=== PATIENT | female | born 1960 | race African-American/Black ===

== ENCOUNTER 2017-04-21 00:01 | Emergency (ER) | payer SELFPAY ==
[~2017-04-21] VITALS: Ht 157.5 cm; Wt 113.6 kg
[2017-04-21] MEDS ORDERED: PERCT10 PO (00:20)
[2017-04-21] MEDS ORDERED: BUPR150SR PO (00:20)
[2017-04-21] MEDS ORDERED: PROZ10 PO (00:20)
[2017-04-21] MEDS ORDERED: FURO40 PO (00:20)
[2017-04-21] MEDS ORDERED: METF500T4 PO (00:20)
[2017-04-21] MEDS ORDERED: QUET100T PO (00:20)
[2017-04-21] MEDS ORDERED: LAMO100 PO (00:20)
[2017-04-21] MEDS ORDERED: MECL12.585 PO (00:20)
[2017-04-21] MEDS ORDERED: PROP10TA73 PO (00:20)
[2017-04-21] MEDS ORDERED: FLUT1BLS IH (00:20)
[2017-04-21] MEDS ORDERED: TRAZ-147 PO (00:20)
[2017-04-21] MEDS ORDERED: METO-558 PO (00:20)
[2017-04-21] MEDS ORDERED: 0.9% SODIUM CHLORIDE 5 ML NEB SOLUTION NEB ONE (00:24)
[2017-04-21] MEDS ORDERED: ALBUTEROL SULFATE 5 MG/ML 20 ML NEB SOLN [BULK] NEB ONE (00:30)
[2017-04-21 01:14] LABS: BASOPHILS % (AUTO) 0.2 % (0.0-2.0); HEMATOCRIT 36.7 % (36-46); HEMOGLOBIN 12.4 g/dL (12.0-16.0); LYMPHOCYTES # (AUTO) 2.4 K/uL (1.0-4.8); LYMPHOCYTES % (AUTO) 46.3 % (22.0-44.0); MEAN CORPUSCULAR HEMOGLOBIN 29.5 pg (26.0-34.0); MEAN CORPUSCULAR HGB CONC 33.7 G/dL (31.0-37.0); MEAN CORPUSCULAR VOLUME 87 fL (80-100); MONOCYTES # (AUTO) 0.6 K/uL (0.1-1.0); MONOCYTES % (AUTO) 11.9 % (2.0-9.0); NEUTROPHILS # (AUTO) 2.1 K/uL (1.8-7.7); NEUTROPHILS % (AUTO) 39.6 % (40.0-70.0); PLATELET COUNT (AUTO) 301 K/uL (150-450); RED CELL DISTRIBUTION WIDTH 13.8 % (11.5-14.5)
[2017-04-21 01:29] LABS: ANION GAP 9 mmol/L (8-16); CALCIUM, TOTAL 8.3 mg/dL (8.8-10.5); CARBON DIOXIDE 26 mmol/L (22-29); CHLORIDE 106 mmol/L (98-107); CREATININE 1.01 mg/dL (0.60-1.30); GLOMERULAR FILTR. RATE CALC > 60 mL/min (>60); GLUCOSE,RANDOM 123 mg/dL (70-110); POTASSIUM 3.6 mmol/L (3.5-5.1); SODIUM SERUM 141 mmol/L (136-145); UREA NITROGEN, BLOOD 19 mg/dL (7-18)
[2017-04-21 01:34] LABS: ALANINE AMINOTRANSFERASE 36 U/L (12-78); ALBUMIN 3.4 g/dL (3.4-5.0); ALKALINE PHOSPHATASE 76 U/L (46-116); ASPARTATE AMINOTRANSFERASE 21 U/L (15-37); BILIRUBIN,TOTAL 0.2 mg/dL (0.1-1.0)
[2017-04-21 01:52] LABS: B-TYPE NATRIURETIC PEPTIDE 11 pg/mL (0-100)
[2017-04-21] MEDS ORDERED: LEVALBUTEROL HCL 1.25 MG/0.5 ML NEB SOLUTION NEB ONE (02:15)
[2017-04-21] MEDS ORDERED: PROMETHAZINE HCL/CODEINE 6.25-10MG/5ML SYRUP UDCUP PO ONE (02:15)
[2017-04-21] MEDS ORDERED: IPRATROPIUM BROMIDE 0.5 MG/2.5 ML NEB SOLUTION NEB ONE (02:15)
[2017-04-21] MEDS ORDERED: DEXAMETHASONE SOD PHOS 4 MG/ML 5 ML VIAL IVP ONE (02:30)
[2017-04-21] MEDS ORDERED: AMPICILLIN SODIUM/SULBACTAM NA 3 GM in SODIUM CHLORIDE 0.9% 100 ML IV ONE (03:00)
[2017-04-21 07:45] VITALS: BP 123/74
== END 2017-04-21 08:30 | disposition home or self-care (01) ==
LOC: EMS 00:03
DX: J32.9 Chronic sinusitis, unspecified (principal); J18.9 Pneumonia, unspecified organism; E11.9 Type 2 diabetes mellitus without complications; F41.9 Anxiety disorder, unspecified; I10 Essential (primary) hypertension; J45.909 Unspecified asthma, uncomplicated
CPT/HCPCS: 36415; 71020; 80053; 83880; 84484; 85025; 85379; 93005; 94640; 96365; 96375; 99285; J0295; J1100; J7050; Z7610